=== PATIENT | male | born 1995 | race African-American/Black ===

== ENCOUNTER → 2025-01-04 | Outpatient (CLI) | payer OTHER | LOC: M OUTALCOH 09:43 | PROVIDERS: ATTEND Psychiatry & Neurology Psychiatry | DX: Z03.89 Encounter for observation for other suspected diseases and conditions ruled out (principal) ==

== ENCOUNTER 2025-01-12 10:04 | Outpatient (RCR) | payer OTHER | END 2025-01-29 | LOC: M OUTALCOH 10:04 | PROVIDERS: ATTEND Psychiatry & Neurology Psychiatry | DX: Z03.89 Encounter for observation for other suspected diseases and conditions ruled out (principal) ==